=== PATIENT | male | born 2000 | race Caucasian/White ===

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

== ENCOUNTER 2019-03-27 15:14 | Emergency (ER) | payer MEDICAID ==
[~2019-03-27] VITALS: Ht 175.3 cm; Wt 77.1 kg
[2019-03-27 15:33] VITALS: BP_SYST 165
--- NOTE | 2019-03-27 15:41 | NUR ---
Patient to ER bed 3 to gown for evaluation. Side rails up. Report given to Lois GARCIA.
--- NOTE | 2019-03-27 15:42 | NUR ---
Pt brought by mother,A&Ox4, pt presents to ER with blurred vision.Pt states he was applying hair relaxer and got into his eyes , no redness noted at this time, will continue to monitor.
--- NOTE | 2019-03-27 15:50 | NUR ---
Dr Lara at bedside examining patient
[2019-03-27] MEDS ORDERED: TETRACAINE HCL 0.5% OPHTHALMIC DROPS 15 ML OP ONE (16:00)
[2019-03-27] MEDS ORDERED: FLUORESCEIN SODIUM 1 MG OPHTHALMIC STRIP OP ONE (16:00)
[2019-03-27 16:46] VITALS: BP_SYST 148
--- NOTE | 2019-03-27 16:47 | NUR ---
Patient given written and verbal discharge instructions and verbalizes understanding. ER MD discussed with patient the results and treatment provided. Patient in stable condition. ID arm band removed. No Rx given. Patient educated on pain management and to follow up with PMD. Pain Scale 2/10 tolerable for patient . Opportunity for questions provided and answered. Medication side effect fact sheet provided.
== END 2019-03-27 16:47 | disposition home or self-care (01) ==
LOC: SED 15:14
DX: H57.89 Other specified disorders of eye and adnexa (principal); R03.0 Elevated blood-pressure reading, without diagnosis of hypertension; F90.9 Attention-deficit hyperactivity disorder, unspecified type
CPT/HCPCS: 99282

== ENCOUNTER 2019-04-28 00:15 | Emergency (ER) | payer MEDICAID ==
[~2019-04-28] VITALS: Ht 175.3 cm; Wt 80.7 kg
[2019-04-28 00:20] VITALS: BP_SYST 129
--- NOTE | 2019-04-28 00:20 | NUR ---
Patient to ER bed 3 for evaluation. Side rails up.
--- NOTE | 2019-04-28 00:24 | NUR ---
Pt C/O anxiety x 1 hour ago. Pt has hx of anxiety, bipolor and ADHD. States he has had anxiety attacks in the past. States he was having shortness of breath and induced vomiting because "I thought it would make me feel better". Has been recently prescribed Latuda and states he took yesterdays dose today as well as tonights dose because he forgot. Reports increased stress denies SI,HI, AH,VH. Denies any other complaints at this time. Will continue to monitor.
--- NOTE | 2019-04-28 00:30 | NUR ---
ER Dr. Rosas at bedside examining patient.
[2019-04-28 00:41] VITALS: BP_SYST 129
--- NOTE | 2019-04-28 00:42 | NUR ---
Patient given written and verbal discharge instructions and verbalizes understanding. ER MD discussed with patient the results and treatment provided. Patient in stable condition. ID arm band removed. Rx of Atarax given. Patient educated on pain management and to follow up with PMD. Pain Scale 0. Opportunity for questions provided and answered. Medication side effect fact sheet provided.
[2019-04-28] MEDS ORDERED: TUBERCULIN,PURIF.PROT.DERIV. 0.1 ML SYR ID ONE (00:49)
== END 2019-04-28 00:41 | disposition home or self-care (01) ==
LOC: SED 00:15
DX: F41.9 Anxiety disorder, unspecified (principal); F90.9 Attention-deficit hyperactivity disorder, unspecified type; R03.0 Elevated blood-pressure reading, without diagnosis of hypertension
CPT/HCPCS: 86580; 99284

== ENCOUNTER 2019-09-14 02:42 | Emergency (ER) | payer MEDICAID ==
[~2019-09-14] VITALS: Ht 175.3 cm; Wt 83.9 kg
[2019-09-14 02:47] VITALS: BP_SYST 96
[2019-09-14 04:11] LABS: BASOPHILS # (AUTO) 0.1 K/uL (0.0-0.2); EOSINOPHILS # (AUTO) 0.4 K/uL (0.0-0.4); EOSINOPHILS % (AUTO) 4.6 % (0.0-4.0); HEMATOCRIT 44.3 % (36-54); HEMOGLOBIN 15.4 g/dL (14.0-18.0); LYMPHOCYTES # (AUTO) 2.3 K/uL (1.0-5.5); LYMPHOCYTES % (AUTO) 29.5 % (20.5-51.5); MEAN CORPUSCULAR HEMOGLOBIN 30 pg (27-31); MEAN CORPUSCULAR HGB CONC 35 % (32-36); MEAN CORPUSCULAR VOLUME 87 fL (79.0-98.0); MONOCYTES # (AUTO) 0.6 K/uL (0.0-1.0); MONOCYTES % (AUTO) 7.9 % (1.7-9.3); NEUTROPHILS # (AUTO) 4.5 K/uL (1.8-7.7); PLATELET COUNT (AUTO) 219 K/uL (130-430); RED BLOOD CELL COUNT(AUTO) 5.09 MIL/uL (4.2-6.2); RED CELL DISTRIBUTION WIDTH 12.8 % (9.0-15.0); WHITE BLOOD COUNT (AUTO) 7.8 K/uL (4.8-10.8)
[2019-09-14 04:18] LABS: CREATININE 1.12 mg/dL (0.55-1.30); POTASSIUM 3.7 mmol/L (3.5-5.1)
[2019-09-14 04:24] LABS: ALBUMIN 4.1 g/dL (3.4-4.8); TOTAL BILIRUBIN 0.8 mg/dL (0.0-1.0)
[2019-09-14 05:06] LABS: THYROID STIMULATING HORMONE 0.97 uIu/mL (0.36-3.74)
[2019-09-14 06:20] VITALS: BP_SYST 108
== END 2019-09-14 06:20 | disposition home or self-care (01) ==
LOC: SED 02:42
DX: F41.0 Panic disorder [episodic paroxysmal anxiety] (principal)
CPT/HCPCS: 36415; 80053; 84439; 84443-TC; 84484; 85025; 93005; 99284

== ENCOUNTER 2019-10-04 23:09 | Emergency (ER) | payer MEDICAID ==
[~2019-10-04] VITALS: Ht 175.3 cm; Wt 83.9 kg
[2019-10-04 23:38] VITALS: BP_SYST 155
--- NOTE | 2019-10-05 02:08 | NUR ---
Called back, no answer
--- NOTE | 2019-10-05 02:08 | NUR ---
Patient left without being seen. No futher treatment provided. ER MD aware
--- NOTE | 2019-10-05 02:08 | NUR ---
Pt called back x 2, no answer
== END 2019-10-05 02:08 | disposition left against medical advice (07) ==
LOC: SED 23:09
DX: M54.5 Low back pain (principal); Z53.21 Procedure and treatment not carried out due to patient leaving prior to being seen by health care provider
CPT/HCPCS: 72100-TC

== ENCOUNTER 2019-12-04 01:40 | Emergency (ER) | payer MEDICAID ==
[~2019-12-04] VITALS: Ht 167.6 cm; Wt 72.6 kg
[2019-12-04 01:40] VITALS: BP_SYST 124
--- NOTE | 2019-12-04 01:40 | NUR ---
BIB [address]. Patient triaged and placed in waiting room. VSS and patient appears in no acute distress at this time. Accompanied by self, awaiting available bed, and MD notified of need for MSE.
[2019-12-04 03:00] VITALS: BP_SYST 121
--- NOTE | 2019-12-04 03:00 | NUR ---
Pt wanting to leave. Denies chest pain, states anxiety is resolved. HR WNL. Given sandwich and juice, he sat back in WR.
--- NOTE | 2019-12-04 04:32 | NUR ---
Pt father here to take him home. Pt LWBS at this time.
== END 2019-12-04 04:32 | disposition left against medical advice (07) ==
LOC: SED 01:40
DX: F41.9 Anxiety disorder, unspecified (principal); Z53.21 Procedure and treatment not carried out due to patient leaving prior to being seen by health care provider

== ENCOUNTER 2019-12-24 19:51 | Emergency (ER) | payer MEDICAID ==
[~2019-12-24] VITALS: Ht 175.3 cm; Wt 86.2 kg
[2019-12-24 19:55] VITALS: BP_SYST 130
--- NOTE | 2019-12-24 19:55 | NUR ---
Patient triaged and placed in waiting room. VSS and patient appears in no acute distress at this time. Accompanied by SELF, awaiting available bed, and MD notified of need for MSE.
--- NOTE | 2019-12-24 20:35 | NUR ---
Patient to ER bed 4 to gown for evaluation. Side rails up. Report given to Mimi GARCIA.
--- NOTE | 2019-12-24 20:40 | NUR ---
Pt is alert and oriented. Pt here for RX refill, Lexapro 20mg for his anxiety. No signs of acute distress noted at this time. Will continue to monitor.
--- NOTE | 2019-12-24 20:50 | NUR ---
ER MD SMITH AT BEDSIDE EXAMINING PATIENT.
[2019-12-24 21:10] VITALS: BP_SYST 130
--- NOTE | 2019-12-24 21:10 | NUR ---
Patient given written and verbal discharge instructions and verbalizes understanding. ER MD Dee discussed with patient the results and treatment provided. Patient in stable condition. ID arm band removed. Rx of Lexapro given. Patient educated on pain management and to follow up with PMD. Pain Scale 0/10. Opportunity for questions provided and answered. Medication side effect fact sheet provided.
== END 2019-12-24 21:10 | disposition home or self-care (01) ==
LOC: SED 19:51
DX: F41.9 Anxiety disorder, unspecified (principal); F32.9 Major depressive disorder, single episode, unspecified; Z76.0 Encounter for issue of repeat prescription
CPT/HCPCS: 99283

== ENCOUNTER 2020-01-08 18:34 | Emergency (ER) | payer MEDICAID ==
[~2020-01-08] VITALS: Ht 175.3 cm; Wt 83.9 kg
[2020-01-08 18:40] VITALS: BP_SYST 129
--- NOTE | 2020-01-08 19:21 | NUR ---
Patient to ER bed 04 to gown for evaluation. Side rails up.
--- NOTE | 2020-01-08 19:24 | NUR ---
Pt presents to ER with c/o prescription refill. Pt A&Ox4. Pt states he is here for a prescription refill for Xanax. Pt states history of anxiety. Upon assessment, breath sounds bilaterally clear with no use of accessory muscles. Will continue to monitor.
--- NOTE | 2020-01-08 19:33 | NUR ---
ER Dr. Velasco at bedside examining patient.
[2020-01-08 20:10] VITALS: BP_SYST 118
--- NOTE | 2020-01-08 20:10 | NUR ---
Patient given written and verbal discharge instructions and verbalizes understanding. ER MD Velasco discussed with patient the results and treatment provided. Patient in stable condition. ID arm band removed.. Rx of Lexapro given. Patient educated on pain management and to follow up with PMD. Pain Scale 0/10. Opportunity for questions provided and answered. Medication side effect fact sheet provided.
== END 2020-01-08 20:10 | disposition home or self-care (01) ==
LOC: SED 18:34
DX: F41.9 Anxiety disorder, unspecified (principal)
CPT/HCPCS: 93005; 99283

== ENCOUNTER 2020-03-22 18:45 | Emergency (ER) | payer MEDICAID ==
[~2020-03-22] VITALS: Ht 170.2 cm; Wt 81.6 kg
[2020-03-22 19:11] VITALS: BP_SYST 155
[2020-03-22 19:56] VITALS: BP_SYST 142
[2020-03-22] MEDS ORDERED: BACITRACIN 1 GM OINT TP ONE (20:00)
== END 2020-03-22 19:56 | disposition home or self-care (01) ==
LOC: SED 18:45
DX: S80.211A Abrasion, right knee, initial encounter (principal); R07.89 Other chest pain; F12.90 Cannabis use, unspecified, uncomplicated; W22.8XXA Striking against or struck by other objects, initial encounter; Y93.89 Activity, other specified; Y92.89 Other specified places as the place of occurrence of the external cause; Y99.8 Other external cause status
CPT/HCPCS: 93005; 99283

== ENCOUNTER 2021-08-26 02:45 | Emergency (ER) | payer MEDICAID ==
[~2021-08-26] VITALS: Ht 170.2 cm; Wt 83.9 kg
[2021-08-26 03:05] VITALS: BP_SYST 105
[2021-08-26 04:15] VITALS: BP_SYST 105
== END 2021-08-26 04:15 | disposition home or self-care (01) ==
LOC: SED 02:45
DX: S01.81XA Laceration without foreign body of other part of head, initial encounter (principal); S09.90XA Unspecified injury of head, initial encounter; W51.XXXA Accidental striking against or bumped into by another person, initial encounter; Y93.67 Activity, basketball; Y92.89 Other specified places as the place of occurrence of the external cause; Y99.8 Other external cause status
CPT/HCPCS: 99282

== ENCOUNTER 2021-09-01 16:48 | Emergency (ER) | payer MEDICAID ==
[~2021-09-01] VITALS: Ht 172.7 cm; Wt 83.9 kg
[2021-09-01 17:00] VITALS: BP_SYST 150
--- NOTE | 2021-09-01 17:10 | NUR ---
Pt to [place] [id number] for evaluation. Report given to RADHA Spence who will assume care.
--- NOTE | 2021-09-01 17:26 | NUR ---
patient present to ED for suture removal to the right eyebrow. Patient had sutures placed on 08/26. No redness or swelling noted pain 0/10
--- NOTE | 2021-09-01 17:32 | NUR ---
2 sutures removed from right eyebrow. patient tolerated well.
--- NOTE | 2021-09-01 17:36 | NUR ---
ER at bedside examining patient.
--- NOTE | 2021-09-01 17:36 | NUR ---
Annmarie roa in EDM - 09/01/21 at 1748 by [email or web address] patient present to ED for suture removal to the right eyebrow. Patient had sutures placed on 08/26. No redness or swelling noted pain
[2021-09-01 17:42] VITALS: BP_SYST 133
--- NOTE | 2021-09-01 17:42 | NUR ---
Patient's guardian given written and verbal discharge instructions and verbalizes understanding. ER MD discussed with patient's guardian the results and treatment provided. Patient in stable condition. ID arm band removed. No Rx given. Patient's guardian educated on pain management, fever management, and to follow up with primary physician. Pain Scale/FLACC 0/10 Opportunity for questions provided and answered.
--- NOTE | 2021-09-01 17:46 | NUR ---
Annmarie roa in EDM - 09/01/21 at 1747 by [email or web address] patient present to ED for suture removal to the right eyebrow. Patient had sutures placed on 08/26. No redness or swelling noted pain
== END 2021-09-01 17:42 | disposition home or self-care (01) ==
LOC: SED 16:48
DX: S01.81XA Laceration without foreign body of other part of head, initial encounter (principal); Z48.02 Encounter for removal of sutures; X58.XXXD Exposure to other specified factors, subsequent encounter
CPT/HCPCS: 99281

== ENCOUNTER 2022-08-13 19:25 | Emergency (ER) | payer MEDICAID ==
[~2022-08-13] VITALS: Ht 175.3 cm; Wt 81.6 kg
[2022-08-13 19:35] VITALS: BP_SYST 124
--- NOTE | 2022-08-13 19:37 | NUR ---
DR. CARRASCO TO BEDSIDE TO SEE PATIENT.
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
--- NOTE | 2022-08-13 20:28 | NUR ---
DR. CARRASCO SPEAKING TO PATIENT, WAITING FOR XRAY AT THIS TIME.
[2022-08-13] MEDS ORDERED: PSEU30TA36 PO (20:38)
[2022-08-13] MEDS ORDERED: IBUP-1971 PO (20:38)
--- NOTE | 2022-08-13 20:55 | NUR ---
Patient given written and verbal discharge instructions and verbalizes understanding. ER MD discussed with patient the results and treatment provided. Patient in stable condition. ID arm band removed. IV catheter removed intact and dressing applied, no active bleeding. Rx of N/A given. Patient educated on pain management and to follow up with PMD. Pain Scale . Opportunity for questions provided and answered. Medication side effect fact sheet provided.
== END 2022-08-13 20:54 | disposition home or self-care (01) ==
LOC: SED 19:25
DX: J40 Bronchitis, not specified as acute or chronic (principal); R05.9 Cough, unspecified; R09.81 Nasal congestion; J02.9 Acute pharyngitis, unspecified; Z79.899 Other long term (current) drug therapy; Z20.822 Contact with and (suspected) exposure to COVID-19
CPT/HCPCS: 36415; 71045; 99284